=== PATIENT | female | born 1940 | race Caucasian/White ===

== ENCOUNTER 2024-09-30 07:10 | Day surgery (SDC) | payer MEDICARE, OTHER ==
[~2024-09-30] VITALS: Ht 152.4 cm; Wt 141.0 kg
[2024-09-30] VITALS (17 sets, daily range): BP systolic 144–207; BP diastolic 78–110; PULSE 52–70; RESP 11–17; O2SAT 95–100
[~2024-09-30 07:10] MED LIST: ATOR-2 PO; NO HOME MEDS
[2024-09-30] MEDS ORDERED: propofol inj 20 ML IV ONE (08:26)
[2024-09-30] MEDS ORDERED: hydrALAZINE 20mg/ml inj. ONE (10:37)
[2024-09-30] MEDS: hydrALAZINE 20mg/ml inj. IV ONE (10:47)
== END 2024-09-30 11:05 | disposition home or self-care (01) ==
LOC: GI LAB 07:10
PROVIDERS: ATTEND Internal Medicine Gastroenterology
DX: R93.3 Abnormal findings on diagnostic imaging of other parts of digestive tract (principal); K29.71 Gastritis, unspecified, with bleeding; I10 Essential (primary) hypertension; K21.9 Gastro-esophageal reflux disease without esophagitis; Z88.6 Allergy status to analgesic agent; Z88.8 Allergy status to other drugs, medicaments and biological substances; Z72.89 Other problems related to lifestyle
CPT/HCPCS: 43239; 88305; A4620; J0360; J2704; J7030; Z7512